=== PATIENT | female | born 1995 | race Caucasian/White ===

== ENCOUNTER 2024-03-19 15:35 | Emergency (ER) | payer BC, SELFPAY ==
[2024-03-19 15:46] VITALS: BP 115/70; PULSE 85; RESP 20; TEMP 36.7; O2SAT 98
--- NOTE | 2024-03-19 16:15 | ED.DENTAL ---
HPI - Dental/Oral General Chief complaint: Dental/Oral Stated complaint: Headache /tooth pain or infection Time Seen by Provider: 03/19/24 16:05 Source: patient, RN notes reviewed and old records reviewed Mode of arrival: ambulatory Limitations: no limitations History of Present Illness HPI Narrative: 28 year old female accompanied by significant other presents to express care with complaints of having right lower wisdom tooth extracted on Thursday and since yesterday she has been having pain to her right cheek. Patient reports that she has taken Percocet and also Excedrin migraine for her pain but not relieved completely. Patient reports that she has throbbing type of pain. MD Complaint: tooth pain (headache, pain to right cheek) Onset (ago): day(s) (day 2) Severity scale (1-10): 6 Treatment prior to arrival: oral analgesic (Percocet and also Excedrin Migraine) Related Data Home Medications Medication Instructions Recorded Confirmed oxycodone-acetaminophen 5 mg-325 1 tablet PO Q4-6H PRN Pain (Scale 03/19/24 03/19/24 mg tablet Score 7-10) Allergies Allergy/AdvReac Type Severity Reaction Status Date / Time No Known Allergies Allergy Verified 03/19/24 16:02 Review of Systems Review of Systems: CONSTITUTIONAL: Denies fever, chills, or sweats. ENT: Denies rhinorrhea, congestion, sore throat, or otalgia. Reports right cheek pain and headache, extraction of right lower wisdom tooth on Thursday, no facial swelling or redness CARDIOVASCULAR: Denies chest pain, palpitations, or edema. RESPIRATORY: Denies cough or dyspnea. SKIN: Denies rash or itching. MUSCULOSKELETAL: Denies myalgia. NEUROLOGIC:Reports headache All systems reviewed & are unremarkable except as noted in HPI and below PMFSH Past Medical History Medical History (Updated 03/20/24 @ 21:35 by Belle Da Silva NP) Migraine Surgical History Surgical History (Updated 03/20/24 @ 21:29 by Belle Da Silva NP) [place] teeth extracted Social History Social History (Updated 03/20/24 @ 21:30 by Belle Da Silva NP) Smoking status: Never smoker Alcohol intake: current Alcohol use details: social Substance use type: does not use Living arrangements: with family Gender identity (if verbalized by the patient): Female Comments At time of signature, agree with nursing past medical, surgical, social and family history. There is no relevant family history pertinent to the presenting complaint Exam Narrative: GENERAL: Well-appearing, well-nourished, and in no acute distress. HEAD: Normocephalic, atraumatic. EYES: PERRLA and EOMI. ENT: Nares clear, no rhinorrhea or epistaxis. Mucous membranes moist. recent extraction right lower wisdom tooth 4 days ago pain to right cheek and headache no trismus or any Ken angina. gums pink no swelling noted. NECK: Supple. no lymphadenopathy CHEST: Clear to auscultation. No respiratory distress.SAO2 98% on room air HEART: Regular rate and rhythm. No murmur heard. Normal peripheral pulses. SKIN: Warm, dry, no rash. NEURO: No focal deficits. Alert and oriented x3. Course Course Emergency Course: Patient is aware of diagnosis, understands and agrees to treatment plan. Anticipatory guidance given. Patient agrees to follow-up as directed and is aware of reasons to seek care at the emergency department. Portions of this record may have been created with voice recognition software Level of Care: Express Care Visit Vital Signs Vital signs: Vital Signs Temperature 36.7 C 03/19/24 15:46 Pulse Rate 85 03/19/24 15:46 Respiratory Rate 20 03/19/24 15:46 Blood Pressure 115/70 03/19/24 15:46 Pulse Oximetry 98 03/19/24 15:46 Oxygen Delivery Room Air 03/19/24 15:46 Temperature 36.7 C 03/19/24 15:46 Pulse Rate 85 03/19/24 15:46 Respiratory Rate 20 03/19/24 15:46 Blood Pressure 115/70 03/19/24 15:46 Pulse Oximetry 98 03/19/24 15:46 Oxygen Delivery Room Air 03/19/24
== END 2024-03-19 16:34 | disposition home or self-care (01) ==
PROVIDERS: Emergency Provider Registered Nurse
DX: R51.9 Headache, unspecified (principal); K08.89 Other specified disorders of teeth and supporting structures
CPT/HCPCS: 99203; G0463